=== PATIENT | female | born 1945 | race Caucasian/White ===

== ENCOUNTER → 2016-11-24 | Day surgery (SDC) | payer MEDICARE, OTHER ==
[2016-11-24] VITALS (7 sets, daily range): BP systolic 139–169; BP diastolic 71–83; PULSE 84–112; RESP 9–16; O2SAT 98–100
[~2016-11-24] VITALS: Ht 152.4 cm; Wt 75.6 kg
[~2016-11-24] MED LIST: 0.9% Sodium Chloride 0 ML ONE; 0.9% Sodium Chloride 100 ML ONE; Atropine 0.4 mg/mL Inj IVPUSH PRN; Bupivacaine Liposome 1.3% 20 mL Inj INFILTRATE ONE; Bupivacaine Liposome 1.3% 20 mL Inj ONE; Bupivacaine-MPF 0.5% W/EPI 30 mL Inj INFILTRATE ONE; CeFAZolin 2 Gm/50 mL D5W IV Premix IV ONE; EPHEDrine Sulfate 50 mg/mL Inj IVPUSH PRN; Esmolol 10,000 mCg/mL 10 mL Inj ONE; Gentamicin 40 mg/mL 2 mL Inj IRRIGATION ONE; Labetalol 5 mg/mL 20 mL Inj IV PRN; Lactated Ringer's 1,000 ML IV ONE; Lactated Ringer's 1,000 ML IV SCH; Lactated Ringer's 500 ML IV PRN; MetoCLOpramide 5 mg/mL 2 mL Inj IVPUSH PRN; MetoCLOpramide 5 mg/mL 2 mL Inj ONE; Ondansetron 2 mg/mL 2 mL Inj IVPUSH PRN; Phenylephrine 10,000 mCg/mL Inj IVPUSH PRN; Phenylephrine/NS 100 mCg/mL 10 mL Syringe IVPUSH ONE; Tranexamic Acid 100 mg/mL 10 mL Inj ONE; Vancomycin 1,000mg/200 mL NS IV ONE; Vancomycin Inj 1,000 MG in IV Premix 1 EACH IV ONE; fentaNYL-PF 50 mCg/mL 2 mL Inj ONE; hydrOXYzine Pamoate 25 mg Capsule PO PRN; oxyCODONE-Acetamin 5-325 mg Tablet PO PRN
[2016-11-24] MEDS: Clindamycin 900 mg/50 mL D5W IV SCH ×2 (13:56→14:20)
--- NOTE | 2016-11-24 14:54 | PCM.HPANE ---
Patient Data Surgeon Admitting Provider: Attending Provider:Kareem Shelton MD Primary Care Physician:Erik Petersen MD Other Provider:Mackenzie Butler Anesthesia Reason for Visit Left Knee Arthritis Ht/WT & BMI Height (Feet): 5 Height (Inches): 0 Weight (Kilograms): 75.6 Body Mass Index 32.00 Allergies Coded Allergies: Penicillins (Verified Allergy, Severe, Passed out, 11/17/16) Quinolones (Verified Allergy, Severe, Tachycardia,agitatio, 11/17/16) amoxicillin (Verified Allergy, Severe, "PASSED OUT", 11/24/16) caffeine (Verified Allergy, Severe, Heart attack sx, 11/17/16) codeine (Verified Allergy, Severe, Hives, 11/17/16) erythromycin ethylsuccinate (Verified Allergy, Severe, Numbness, 11/17/16) pentazocine (Verified Allergy, Severe, Tachycardia, 11/17/16) Past Anesthesia History Anesthesia History: Denies:: Abnormal Airway, Anesthesia Reactions, Difficult Intubation, Fam Anesthesia Reaction, Fam Malignant Hypertherm, Malignant Hyperthermia Diabetes History Hx Diabetes?: No MRSA MRSA: No Medications Hypertension Medication: No Home Meds Incl Beta Alec: No No Active Prescriptions or Reported Meds History History of ENT Problems?: No HEENT History: Positive for:: Cataracts (bilateral surgery) Hearing Problem Denies:: Abnormal Airway Difficult Intubation Dysphagia Sinus Problem TMJ Denture Type: Partial- Upper Teeth Condition: Missing Teeth Other HEENT Pertinent History: recent hx of abscessed tooth- no longer on abx Hx of Heart Problems?: Yes Cardiovascular History: Positive for:: Edema Denies:: AICD Abdominal Aortic Aneurism Atrial Fibrillation Cardiac Surgery Chest Pain Congestive Heart Failure Coronary Artery Disease Heart Murmur Hypertension Irregular Heartbeat Pacemaker Peripheral Vascular Rheumatic Fever Thrombophlebitis Valvular Heart Disease Hx of Respiratory Problem?: No Respiratory History: Denies:: Asthma COPD Chest Surgery Cough Dyspnea Emphysema Hemoptysis Oxygen Administration Pneumonia Pulmonary Embolism Tuberculosis Use of C-PAP Machine Use of Inhalers / NEBS Hx Neurologic Problems?: No Neurological History: Denies:: Alzheimer's Disease CVA Dementia Dizziness Headaches Multiple Sclerosis Parkinson's Disease Peripheral Neuropathy Seizures TIA Hx of GI Problems?: Yes Gastrointestinal History: Denies:: Cirrhosis Diverticulitis Gall Bladder Disease Gastroesphageal Reflux Gastrointestinal Bleeding Heartburn Hepatitis Hiatal Hernia Liver Disease Rectal Bleeding Hx of Problems?: No Genitourinary History: Denies:: HX of Hemodialysis Kidney Stones Urinary Tract Infection HX of Peritoneal Dialysis: No Female Hx: Denies:: Currently Endometriosis Pelvic Inflammatory Problems with Breasts? Skin History: Denies:: History Skin Disorders? Pressure Ulcers Hx Musculoskeletal Problems?: Yes Musculoskeletal History: Positive for:: Degenerative Joint Joint Replacement (right knee ) Musculoskeletal Trauma (left knee current admission problem) Osteoarthritis Denies:: Back Injury Fibromyalgia Myasthenia Gravis Rheumatoid Arthritis Systemic Lupus Hx of Psycho/Social Problems?: No Psycho Social History: Denies:: Anxiety Bipolar Disorder Hx Depression Suicide Attempt Hx Surgeries?: Yes (tubal, tonsils, jazmyn, right partial knee) Hx Any Other Health Problems?: Yes Other History: Positive for:: Hospitalization Denies:: Cancer Endocrine Disease Thyroid Disease History Blood Transfusions: Positive for:: Accept Blood Products? Denies:: Blood Transfuse Reaction Blood Transfusions Hx Diabetes: No Hx Alcohol Use: NoHx Substance Use: NoHave You Smoked inLast 12 mo: No Stop/Bang S-Snoring: Do You Snore Loudly: No T-Tired: feel tired, fatigued: No O-Obsered: Observed not breath: No P-Blood Pressure: treated: No B- Body Mass Index > 35 kg/m2: No A- Age over 50: Yes N- Neck Large Circumference: No G- Gender Male: No BRADY Total Score: 1 Risk Assessment Category Category 1A: Patient has history of documented sleep apnea, and HAS NOT received any narcotic, sedative or anesthesia administration during this stay. Category 1B: Patient has history of documented sleep apnea, and HAS received any narcotic , sedative or anesthesia administration during this stay Category 2: Patient has SUSPECTED Obstructive Sleep Apnea, and HAS received any narcotic , sedative or anesthesia administration during this stay. Category 3: Patient has SUSPECTED Obstructive Sleep Apnea and HAS NOT received narcotic, sedative or anesthesia administration during this stay. Category 4: Outpatient in Procedural Areas with known sleep apnea or who screen positive for High Risk via the STOP/BANG questionnaire. Exam Exam Vital Signs Vital Signs Date Time Temp Pulse Resp B/P Pulse Ox O2 Delivery O2 Flow Rate FiO2 11/24/16 12:00 35.9 84 16 159/80 98 Room Air General Appearance: Alert, Oriented X3, Cooperative, No Acute Distress HEENT/AIRWAY: MP 2, Neck Movement (FROM), Mouth Opening (3 FBMO) Lungs: Clear to Auscultation, Normal Air Movement Heart: Exam Unremarkable, Regular Rate/Rhythm, No Murmurs/Rubs/Gallops Meds/Labs/Diagnostics Admission Meds Current Medications Lactated Ringer's 1,000 ml @ 120 mls/hr Q8H20M ONCE IV Last administered on 13:21; Start 11/24/16 at 05:00; Stop 11/24/16 at 13:19; Status DC Clindamycin Phosphate/ Dextrose 900 mg/ Premix 50 ml @ 100 mls/hr PREOP IV Last administered on 11/24/16 13:56; Start 11/24/16 at 07:40; Stop 11/24/16 at 17:00 Tranexamic Acid/ Sodium Chloride (Cyklokapron Inj/ Normal Saline) 110 ml @ 660 mls/hr Q2H IV Last administered on 11/24/16 13:56; Start 11/24/16 at 07:45; Stop 11/24/16 at 09:54; Status DC Bupivacaine HCl/ Epinephrine Bitart (Sensorcaine-MPF 0.5% W/EPI Inj) 30 ml STK- MED ONCE INFILTRATE Last administered on 11/24/16 13:55; Start 11/24/16 at 13: 55; Stop 11/24/16 at 13:57; Status DC Gentamicin Sulfate (Gentamicin Inj) 80 mg STK-MED ONCE IRRIGATION Last administered on 11/24/16 13:55; Start 11/24/16 at 13:55; Stop 11/24/16 at 13:57 ; Status DC Plan Impression Patient chart reviewed, patient interviewed and anesthestic plan with risks, benefits, and alternatives discussed, and informed consent obtained. NPO per Anesth. Guidelines: Yes ASA Physical Status: ASA2 Mod Systemic Disease Anesthetic Plan: GA Bene/Risks/Altern/Consents: Yes HP Complete Prior to Induction: Yes Noah Courtney MD Nov 24, 2016 14:20
[2016-11-24] MEDS: HYDROmorphone 1 mg/mL Inj IVPUSH PRN ×2 (16:05→16:13)
[2016-11-24] MEDS: fentaNYL-PF 50 mCg/mL 2 mL Inj IVPUSH PRN ×2 (16:05→16:12)
--- NOTE | 2016-11-24 16:17 | DRSVH ---
PROCEDURE: X-RAY LEFT KNEE, ONE OR TWO VIEWS ([id number]) INDICATIONS: POST OP PROSTHETIC TECHNIQUE: 2 views of the knee acquired. COMPARISON: [facility], CR, XR KNEE ARTHRITIC SERIES LT, 10/15/2016, 13:46. FINDINGS: Bones: Patient is status post knee joint arthroplasty. Hardware components are in expected position s. Visualized bony structures are intact. Soft tissues: Overlying postoperative changes are noted. IMPRESSION: 1. Expected postsurgical changes status post left knee arthroplasty. Dictated by: Reggie Gates M.D. on 11/24/2016 at 16:15 Approved by: Reggie Gates M.D. on 11/24/2016 at 16:15
--- NOTE | 2016-11-24 17:24 | PCM.ANEP1 ---
Post Anesthesia PACU Phase 1 Assessment Vital Signs Vital Signs Date Time Temp Pulse Resp B/P Pulse Ox O2 Delivery O2 Flow Rate FiO2 11/24/16 16:26 94 16 155/74 100 Room Air 11/24/16 16:21 89 14 148/71 100 Room Air 11/24/16 16:14 88 9 139/78 100 Room Air 11/24/16 16:08 86 16 143/78 100 Simple Mask 6 11/24/16 15:58 94 14 169/83 100 Simple Mask 8 11/24/16 15:48 36.6 112 14 167/83 100 Simple Mask 8 11/24/16 12:00 35.9 84 16 159/80 98 Room Air Anesthetic Administered: GA Level of Alertness: Awake, talking VILLALOBOS's with Equal Strength: Yes Pain: No Nausea or Vomiting: No CV Function & Hydration Stable: Yes Airway Device: n/a Oxygen Delivery: Room Air Lungs: Clear to Auscultation, Normal Air Movement Dermatome Level: Full Sensation PACU Phase 2 Assessment Complications: No Follow up Care: N/A Patient Instructions Provided: N/A Noah Courtney MD Nov 24, 2016 17:24
--- NOTE | 2016-11-25 03:59 | OP ---
[address] [address] OPERATIVE REPORT PATIENT: BARAK LANCE : 1945 MR#: [id number] ADMIT: 11/24/2016 JOB ID: [id number] DATE OF SURGERY: 11/24/2016 SURGEON: Kareem Shelton MD. DATA SECURITY COORDINATOR: Monserrat Padilla PA-C. Furniture Finisher Apprentice required due to the complexity of the operation. PREOPERATIVE DIAGNOSIS(ES): Left knee osteoarthritis. POSTOPERATIVE DIAGNOSIS(ES): Left knee osteoarthritis. PROCEDURE: Left unicompartmental knee replacement. INDICATION: This woman has had a previous unicompartmental knee on the opposite leg which is functioning well for her. She wishes to proceed on this side after failure of conservative treatment management, and understanding of the potential risks and complications. PROCEDURE: The patient was prepped and draped in usual sterile fashion. An anteromedial approach was made to the left knee. Patellar osteophyte was removed. The tibial jig was assembled and a proximal tibial cut was made. The spacer block of 9 mm was then utilized and a distal femoral cut was made. Lateral compartment and patellofemoral joint were visualized, noted be in excellent condition, and the ACL was intact. The femur was sized to a C chamfer cutting block, fixed in appropriate position and rotation, and drill holes and chamfer cuts were made. All meniscal tissue and osteophytes were excised from the knee. Trial reduction performed and a 9 mm polyethylene was chosen. Pressurized lavage was followed by pressurized cementation of the components. Excess cement was removed during the curing process. Final construct was assembled. Alignment was noted to be excellent. Tourniquet was let down. Hemostasis was achieved. A deep Hemovac drain was left. Deep closure with #2 Quill deep, followed by a 2-0 Vicryl, 3-0, and a 4-0 intracuticular stitch. Steri-Strips were applied. Sterile dressing was applied and the patient was returned to the recovery room in stable condition having tolerated the procedure well.
== END | disposition home or self-care (01) ==
LOC: SAS 11:41
PROVIDERS: ATTEND Orthopaedic Surgery
DX: M17.12 Unilateral primary osteoarthritis, left knee (principal)
CPT/HCPCS: 27446; 73560; C1713; C1776; J1170; J1580; J1885; J2370; J2765; J3010; J3370; J3490; J7120; Q0177